=== PATIENT | female | born 1970 | race Caucasian/White ===

== ENCOUNTER 2021-02-02 07:54 | Outpatient (CLI) | payer OTHER, SELFPAY ==
--- NOTE | ~2021-02-02 | MM_ITS ---
EXAMINATION: MM screening xavier BI w juan carlos HISTORY: Screening mammogram TECHNIQUE: Craniocaudal and mediolateral oblique 3-D tomosynthesis images were obtained and synthetic 2-D images were generated. CAD analysis was submitted and interpreted. COMPARISON: 03/11/2019, 04/10/2016, 03/29/2015 bilateral digital screening mammogram examinations BREAST PARENCHYMAL COMPOSITION: The breasts are heterogeneously dense, which may obscure small masses . FINDINGS: There is no evidence of suspicious mass, calcification, or architectural distortion to sugg est malignancy in either breast. There has been no suspicious interval change. IMPRESSION: 1. No mammographic evidence of malignancy. 2. Recommend routine screening mammography in one year. BI-RADS Category 1: Negative Reviewed, dictated and finalized at location A.
== END 2021-02-02 07:55 | disposition home or self-care (01) ==
PROVIDERS: PCP Family Medicine; Visit Provider Family Medicine
DX: Z12.31 Encounter for screening mammogram for malignant neoplasm of breast (principal)
CPT/HCPCS: 77063; 77067

== ENCOUNTER → 2021-02-20 09:21 | Outpatient (CLI) | payer OTHER, SELFPAY ==
--- NOTE | ~2021-02-20 | XR_ITS ---
EXAMINATION: HAND-GENTRY ARTHRITIS 3+VIEWS DATE: 02/20/2021 10:07 INDICATION: Unspecified arthropathy with pain at the base of the bilateral thumbs. TECHNIQUE: Posteroanterior, lateral, and oblique views of the left and of the right hands as well as a ballcatchers view of both hands were obtained. COMPARISON: 04/01/2014 FINDINGS: No fracture at either hand. Interval progression of now severe osteoarthritis at the bilateral first carpal metacarpal joints. Subchondral cystic change at the base of the first metacarpals, left greate r than right. Mild dorsal subluxation of the first metacarpals at the first carpal metacarpal joints. Otherwise normal alignment in both hands. Additional osteoarthritis at the bilateral triscaphe joint s, mild on the right and moderate severity on the left with additional small degenerative subchondral cyst at the distal pole of the left scaphoid. There are small erosions with corticated margins at th e radial sides of the base of the right second-fourth proximal phalanges. The metacarpophalangeal lesly nt spaces remain normal. Soft tissues are unremarkable. IMPRESSION: 1. Interval progression of now severe osteoarthritis at the bilateral first carpal metacarpal joints. 2. Small chronic erosions at the radial bases of the right second-fourth proximal phalanges which cou ld be seen in the setting of chronic rheumatoid arthritis. The metacarpophalangeal joint spaces howev er remain relatively preserved. Reviewed, dictated and finalized at location A. IMPRESSION: 1. Interval progression of now severe osteoarthritis at the bilateral first car pal metacarpal joints. 2. Small chronic erosions at the radial bases of the right second-fourth proxim al phalanges which could be seen in the setting of chronic rheumatoid arthritis . The metacarpophalangeal joint spaces however remain relatively preserved.
== END ==
PROVIDERS: PCP Family Medicine; Visit Provider Family Medicine
DX: M06.9 Rheumatoid arthritis, unspecified (principal); M12.9 Arthropathy, unspecified
CPT/HCPCS: 73130

== ENCOUNTER → 2021-02-28 09:42 | Outpatient (CLI) | payer OTHER, SELFPAY ==
--- NOTE | ~2021-02-28 | XR_ITS ---
EXAMINATION: XR chest 2V DATE: 02/28/2021 10:20 INDICATION: Osteoarthritis, TB screening TECHNIQUE: PA and lateral views of the chest are obtained. COMPARISON: 03/07/2012 FINDINGS: The lungs are free of acute opacities. There is no pleural effusion or pneumothorax. The ca rdiomediastinal silhouette is normal. The visualized bones and soft tissues are unremarkable. IMPRESSION: 1. No acute cardiopulmonary abnormality. Reviewed, dictated and finalized at location A.
== END ==
PROVIDERS: PCP Family Medicine; Visit Provider Family Medicine
DX: M19.90 Unspecified osteoarthritis, unspecified site (principal)
CPT/HCPCS: 71046

== ENCOUNTER 2022-02-20 15:07 | Outpatient (CLI) | payer BC, SELFPAY ==
[2022-02-20 15:27] LABS: Hematocrit 40.2 % (37.0-47.0); Mean Corpuscular HGB Conc 32.3 g/dl (32-36); Mean Corpuscular Volume 89.7 fl (80-100); Mean Platelet Volume 10.7 fl (7.4-10.4); Platelet Count Result 179 k/mm3 (150-375); Red Blood Count 4.48 M/mm3 (4.2-5.4); Red Cell Distribution Width 12.7 % (11.5-14.5); White Blood Count 4.1 K/mm3 (4.5-10.0)
[2022-02-20 15:28] LABS: Appearance Urine Slightly Cloudy (Clear); Bilirubin Urine Negative (Negative); Blood Urine Negative (Negative); Color Urine Yellow (Yellow); Glucose Urine UA Negative (Negative); Ketones Urine Negative (Negative); Leukocyte Esterase Ur Negative LEU/UL (Negative); Nitrate Urine Negative (Negative); Protein Urine Negative (Negative); Specific Grav Ur >= 1.030 (1.001-1.035); Urobilinogen Urine 0.2 mg/dL (<2.0)
[2022-02-20 15:36] LABS: Mucus Urine Rare /lpf; RBC Urine 0-2 /hpf (0-2); Squamous Epithelial Cell Urine Occasional /hpf (Few); WBC Urine 0-3 /hpf
[2022-02-20 15:37] LABS: Add Urine Microscopic? YES
[2022-02-20 15:41] LABS: Alanine Aminotransferase 23 U/L (6-35); Albumin Level 4.1 g/dL (3.5-5.1); Alkaline Phosphatase 53 U/L (38-126); Anion Gap 3 mmol/L (8-16); Aspartate Amino Transferase 30 U/L (14-36); Bilirubin,Total 0.3 mg/dL (0.2-1.3); Blood Urea Nitrogen 25 mg/dL (7-17); CRP < 0.5 mg/dL (<1.0); Calcium 8.7 mg/dL (8.4-10.2); Carbon Dioxide 30 mmol/L (22-30); Chloride 102 mmol/L (98-107); Estimated Glomerular Filt Rate > 60; Glucose 85 mg/dL (65-110); Potassium 3.8 mmol/L (3.4-5.0); Sodium 135 mmol/L (137-145)
[2022-02-20 18:43] LABS: Erythrocyte Sedimentation Rate 4 mm/hr (0-20)
== END 2022-02-20 15:08 | disposition home or self-care (01) ==
LOC: ANHLAB 15:08
PROVIDERS: PCP Family Medicine; Visit Provider Internal Medicine
DX: M05.79 Rheumatoid arthritis with rheumatoid factor of multiple sites without organ or systems involvement (principal); M19.90 Unspecified osteoarthritis, unspecified site
CPT/HCPCS: 36415; 80053; 81001; 85027; 85652; 86140

== ENCOUNTER 2022-04-06 07:04 | Outpatient (CLI) | payer BC, SELFPAY ==
--- NOTE | ~2022-04-06 | MM_ITS ---
EXAMINATION: MM screening xavier BI w juan carlos HISTORY: Screening mammogram TECHNIQUE: Craniocaudal and mediolateral oblique 3-D tomosynthesis images were obtained and synthetic 2-D images were generated. CAD analysis was submitted and interpreted. COMPARISON: 02/02/2021, 03/11/2019, 04/10/2016 bilateral screening mammogram examinations BREAST PARENCHYMAL COMPOSITION: The breasts are heterogeneously dense, which may obscure small masses . FINDINGS: There is no evidence of suspicious mass, calcification, or architectural distortion to sugg est malignancy in either breast. There has been no suspicious interval change. IMPRESSION: 1. No mammographic evidence of malignancy. 2. Recommend routine screening mammography in one year. BI-RADS Category 1: Negative Reviewed, dictated and finalized at location B.
== END 2022-04-06 07:05 | disposition home or self-care (01) ==
LOC: ANHIMG 07:06
PROVIDERS: PCP Family Medicine; Visit Provider Family Medicine
DX: Z12.31 Encounter for screening mammogram for malignant neoplasm of breast (principal)
CPT/HCPCS: 77063; 77067

== ENCOUNTER → 2022-05-07 14:56 | Outpatient (CLI) | payer BC, SELFPAY ==
--- NOTE | ~2022-05-07 | US_ITS ---
. EXAMINATION: US pelvic complete w TV DATE: 05/07/2022 15:17 INDICATION: Hypertrophy of uterus. TECHNIQUE: Multiple transabdominal and transvaginal sonographic images of the pelvis were obtained. COMPARISON: None. FINDINGS: TRANSABDOMINAL ULTRASOUND: The uterus measures 6.5 x 3.4 x 4.0 cm. There is no free fluid in the pelvis. TRANSVAGINAL ULTRASOUND: The endometrial complex measures 3 mm in thickness. The right ovary measures 3.0 x 1.6 x 1.6 cm. The left ovary measures 1.4 x 2.3 x 1.2 cm. IMPRESSION: 1. Normal pelvis. Reviewed, dictated and finalized at location A. IMPRESSION: 1. Normal pelvis.
== END ==
PROVIDERS: PCP Family Medicine; Visit Provider Family Medicine
DX: N85.2 Hypertrophy of uterus (principal)
CPT/HCPCS: 76830; 76856

== ENCOUNTER 2023-06-06 07:14 | Outpatient (CLI) | payer BC, SELFPAY ==
--- NOTE | ~2023-06-06 | MM_ITS ---
EXAMINATION: MM screening xavier BI w juan carlos HISTORY: Screening mammogram TECHNIQUE: Craniocaudal and mediolateral oblique 3-D tomosynthesis images were obtained and synthetic 2-D images were generated. CAD analysis was submitted and interpreted. COMPARISON: 04/06/2022, 02/02/2021 bilateral screening mammogram examinations BREAST PARENCHYMAL COMPOSITION: The breasts are heterogeneously dense, which may obscure small masses . FINDINGS: There is no evidence of suspicious mass, calcification, or architectural distortion to sugg est malignancy in either breast. There has been no suspicious interval change. IMPRESSION: 1. No mammographic evidence of malignancy. 2. Recommend routine screening mammography in one year. BI-RADS Category 1: Negative Reviewed, dictated and finalized at location A.
== END 2023-06-06 07:15 | disposition home or self-care (01) ==
PROVIDERS: PCP Family Medicine; Visit Provider Family Medicine
DX: Z12.31 Encounter for screening mammogram for malignant neoplasm of breast (principal)
CPT/HCPCS: 77063; 77067

== ENCOUNTER 2024-07-10 10:59 | Outpatient (CLI) | payer BC, SELFPAY ==
--- NOTE | ~2024-07-10 | XR_ITS ---
XR hand BI arthritis min 3V Ordering provider: Aryan Moraes MD History: . GENTRY PROX THUMB PAIN /RO RA . Comparison: None. FINDINGS: RIGHT HAND: --BONES: No acute fracture or dislocation. No osteopenia. --JOINT SPACES: Osteoarthritic changes of the first carpometacarpal joint. Lateral subluxation in thi s joint is noted. --SOFT TISSUES: Unremarkable. No soft tissue swelling or nodules. LEFT HAND: --BONES: No acute fracture or dislocation. --JOINT SPACES: Osteoarthritic changes with lateral subluxation seen in the first carpometacarpal lesly nt. --SOFT TISSUES: Unremarkable. No soft tissue swelling or nodules. IMPRESSION: 1. No acute osseous abnormality bilateral hands. 2. Bilateral osteoarthritic changes of the carpometacarpal joint with lateral subluxation bilaterall y. Reviewed, dictated and finalized at location A. IMPRESSION: 1. No acute osseous abnormality bilateral hands. 2. Bilateral osteoarthritic changes of the carpometacarpal joint with lateral subluxation bilaterally.
== END 2024-07-10 11:00 | disposition home or self-care (01) ==
PROVIDERS: PCP Family Medicine; Visit Provider Internal Medicine
DX: M06.9 Rheumatoid arthritis, unspecified (principal); M19.041 Primary osteoarthritis, right hand; M19.042 Primary osteoarthritis, left hand
CPT/HCPCS: 73130

== ENCOUNTER 2024-08-31 09:39 | Outpatient (CLI) | payer BC, SELFPAY ==
--- NOTE | ~2024-08-31 | MM_ITS ---
EXAMINATION: MM screening xavier BI w juan carlos HISTORY: Significant family history of breast cancer diagnosed in the patient's mother in her 50s. TECHNIQUE: Craniocaudal and mediolateral oblique 3-D tomosynthesis images were obtained and synthetic 2-D images were generated. CAD analysis was submitted and interpreted. COMPARISON: 06/06/2023 and dating back to 04/10/2016 BREAST PARENCHYMAL COMPOSITION: The breasts are extremely dense, which lowers the sensitivity of mamm ography. FINDINGS: Bulky calcifications detected bilaterally, stable and benign in appearance. Stable parenchymal pattern without suspicious microcalcifications, architectural distortion, discrete masses or significant asymmetry. IMPRESSION: 1. No mammographic evidence of malignancy. 2. Recommend routine screening mammography in one year. BI-RADS Category 2: Benign findings. Reviewed, dictated and finalized at location A. OR AGENT
== END 2024-08-31 09:40 | disposition home or self-care (01) ==
LOC: ANHIMG 09:41
PROVIDERS: PCP Family Medicine; Visit Provider Family Medicine
DX: Z12.31 Encounter for screening mammogram for malignant neoplasm of breast (principal)
CPT/HCPCS: 77063; 77067

== ENCOUNTER 2025-09-01 10:38 | Outpatient (CLI) | payer BC, SELFPAY ==
--- NOTE | ~2025-09-01 | MM_ITS ---
EXAMINATION: MM screening xavier BI w juan carlos HISTORY: Screening TECHNIQUE: Craniocaudal and mediolateral oblique 3-D tomosynthesis images were obtained and synthetic 2-D images were generated. CAD analysis was submitted and interpreted. COMPARISON: Comparison to multiple prior studies sequentially, with oldest reviewed study dated 04/10/2016. BREAST PARENCHYMAL COMPOSITION: Dense: The breasts are extremely dense, which lowers the sensitivity of mammography. FINDINGS: There is no evidence of suspicious mass, calcification, or architectural distortion to suggest malignancy in either breast. There has been no suspicious interval change. IMPRESSION: 1. No mammographic evidence of malignancy. 2. Recommend routine screening mammography in one year. BI-RADS Category 1: Negative Reviewed, dictated and finalized at location O. [employer] WORKER
--- NOTE | ~2025-09-01 | DEXA_ITS ---
Bone Density Report Name: SULEIMAN BAILEY Age: 55 Sex: Female Ethnicity: White Date of : 1970 Indication: postmenopausal; screening for osteoporosis; Referring Provider: KEAGAN LUJAN Study: Bone densitometry was performed. Exam Date: September 01, 2025 Accession number: [id number] Bone Density: Region BMD T-score Z-score Classification AP Spine(L1-L4) 1.007 -0.4 0.9 Normal Femoral Neck (Left) 0.873 0.2 1.4 Normal Total Hip (Left) 1.036 0.8 1.6 Normal Femoral Neck (Right) 0.930 0.7 1.9 Normal Total Hip (Right) 1.036 0.8 1.6 Normal Total Hip Mean 1.036 0.8 1.6 Normal World Health Organization criteria for BMD impression classify patients as: Normal (T-score at or above -1.0), Osteopenia (T-score between -1.0 and -2.5), or Osteoporosis (T-score at or below -2.5). 10-year Fracture Risk: FRAX not reported because: All T-scores for Spine Total, Hip Total, Femoral Neck at or above -1.0 Clinical Information Provided by Patient: Has used the following medications: Vitamin D, Calcium, on hormones but not for osteoporosis treatment Patient maximum height was 65 Menopause Age: 51 Drinks caffeinated beverages Onset of menses at age 12 Number of children 0 Impression: The patient has normal bone mass. Discussion: BONE DENSITY IS ABOVE THE MINIMUM DESIRABLE LEVEL AT ALL SKELETAL SITES TESTED. This patient?s bone mineral density is above the minimum desirable level (T-score -1.0 or better) at all sites measured. The patient should follow a healthful lifestyle (good nutrition with adequate calcium and vitamin D, and appropriate weight-bearing exercise). Follow-Up: Consider repeating this study in 5 years or sooner if there is some new clinical indication. Reported by: ADOLFO on 09/01/2025 11:30:00 AM. Reviewed, dictated and finalized at location A.
--- OUTSIDE RECORDS SUMMARY | 2025-09-01 10:41 | XMS_ITS | Data Portability ---
Author Organization [place] - [facility], Main Office Address [address] [place] [address] Assessment Encounter Date Assessment Date Assessment LastModified by Organization Details LastModified Time 12/27/2022 12/27/2022 Patient presents back pain left. Pain is localized to the sacroiliac region left hip she had a similar episode 12 years ago but not as bad she does have a mild scoliosis pain is worse with activity and somewhat relieved by rest however she is to the point where she can no longer run he has an even has a hard time walking at this point neurologically she is intact strength is good reflexes symmetric she does have a curvature of the lumbar spine we will try an injection is done with 20 mg Kenalog 4 cc 1% lidocaine the sacroiliac bursa for prescription drug management will try prednisone taper. Even though she has been in therapy before we will try another course of therapy follow-up in a month and see how she is progressing discussed. [email or web address] Not available 12/27/2022 12:06:31 02/05/2023 02/05/2023 The patient returns sacroiliac pain right. She got some relief from the injection the prednisone pills but remains asymptomatic. The pain is worse with activity somewhat relieved by rest he is overall seemingly well I think she can be released at this point recommend she continue with exercise anti-inflammatory medication time. We will give her some Voltaren to try for prescription drug management. If she has any changes or problems she will call discussed. [email or web address] Not available 02/05/2023 16:32:45 Plan of Treatment Reminders Order Date Submit Date Provider Last Modified By Organization Details Last Modified Time Details Appointments None recorded. Lab None recorded. Referral physical therapist referral 2022 023 [email or web address] [facility], [address], [place], [address], 3 08:45:00 Procedures injection/a spiration joint/bursa (PROC) - in office procedure, administere d by provider 2022 023 julianne Toribio In-Office Order, Internal Use Only DO Not Attach Compendium DO Not Attach Compendium, Do Not Delete/merge, [id number] 12:07:06 Surgeries None recorded. Imaging XR, lumbar spine 2022 023 [email or web address] [facility] [place], [address], [place], [address], 3 12:14:19 Medication Orders diclofenac sodium 75 mg tablet,niko yed release 2022 023 julianne Toribio [facility] #[id number], [address], [place], [id number], 3 16:19:13 Kenalog 10 mg/mL suspension for injection 2022 023 [place] [address] [facility] #90292, [address] [place] [address], [id number], 3 12:08:23 ropivacaine (PF) 5 mg/mL (0.5 %) injection solution 2022 023 [id number], [address], [place], [id number], 3 12:08:23 prednisone 10 mg tablets in a dose pack 2022 023 julianne [facility] #58842, [address] [place] [address], [id number], 3 12:08:23 Patient TargetsNo targets recorded. Patient InstructionsNo instructions recorded. Reason for Referral Physical Therapist Referral for Low back pain Referring Physician: Douglas Malik, Orthopedic Surgery, Encounter Date: 12/27/2022 Results Created Date Observation Date Name Description Value Unit Range Abnormal Flag Note LastModifiedBy Organization Detail LastModifiedTime 12/28/19 23 XR, lumba r spine No observ ation record ed. rick [facility] [place] [address], [place], [address], 12/27/2022 12:07:07 Result Notes None recorded. Problems Name Problem SNOMED Code Status Onset Date Resolution Date Notes Provider Name and Address Organization Details Recorded Time Peripheral enthesopat hy 117030475 Active Not Available [facility] 3 18:04:05 Knee pain Active Not Available [facility] 3 18:04:05 Low back pain 980907259 Active 2022 CHRIST Quinonez null, [employer] 3 11:34:09 Pain in left sacroiliac joint 5633262683497 9102 Active 2022 Douglas Malik MD [address] [employer], [place], [address] , [employer] 3 12:07:14 Pain in right sacroiliac joint 0803862202301 9107 Active 2022 Douglas Malik MD [address], [employer], [place], [address] , [employer] 3 16:32:54 Problem Notes None recorded. Procedures Surgical History Date Name Laterality Status Provider Name and Address Organization Details Recorded Time 3 Ortho - Cortisone Injection completed Douglas Malik MD [address], [address], [place], [address], [employer] 12/27/2022 12:04:58 Imaging Results None recorded. Procedure Notes None recorded. Medical Equipment None Reported. Allergies No known drug allergies Medications Name Sig Start Date Stop Date Status Note LastModified by Organization Details LastModified Time prednisone 10 mg tablet active Not Available Not Available Not Available leflunomide 10 mg tablet 12/27 completed Not Available Not Available Not Available triamcinolo ne acetonide 0.5 % topical ointment 12/27 completed Not Available Not Available Not Available tretinoin 0.05 % topical cream APPLY A SMALL AMOUNT TO AFFECTED AREA(S) EVERY EVENING 12/27 completed Not Available Not Available Not Available leflunomide 20 mg tablet 12/27 completed Not Available Not Available Not Available prednisone 10 mg tablets in a dose pack Take 1 tab by mouth, 3 times a day for 3 daysTake 1 tab by mouth 2 times a day for 2 daysTake 1 tab by mouth once a day for 1 day 2022 active Not Available Not Available Not Avai lable Kenalog 10 mg/mL suspension for injection Take 20 mg by injection route. 2022 active [facility]: 0003- 0494- 20 Not Available Not Available Not Available doxycycline monohydrate 100 mg capsule TAKE 1 CAPSULE BY MOUTH TWICE DAILY FOR 10 DAYS 12/27 completed Not Available Not Available Not Available diclofenac sodium 75 mg tablet,niko yed release Take 1 tablet twice a day by oral route. 2022 active Not Available Not Available Not Avai lable folic acid 1 mg tablet 12/27 completed Not Available Not Available Not Available clobetasol 0.05 % topical ointment APPLY OINTMENT TOPICALLY TO AFFECTED AREA TWICE DAILY UNTIL FOLLOW UP IN 3 WEEKS 12/27 completed Not Available Not Available Not Available hydroxychlo roquine 200 mg tablet active Not Available Not Available No t Available ketoconazol e 2 % topical cream 12/27 completed Not Available Not Available Not Available diclofenac 1 % topical gel 12/27 completed Not Available Not Available Not Available ropivacaine (PF) 5 mg/mL (0.5 %) injection solution Take 20 mg by injection route. 2022 active Not Available Not Available Not Avai lable Vitals Date Recorded Body height Body mass index (BMI) Body weight Provider Name and Address Organization Details Last Updated DateTime 12/27/2022 165.1 cm 20.8 kg/m2 65735.05 g CHRIST Quinonez [place] [facility] 12/27/2022 11:31:56 Date Recorded Body height Body mass index (BMI) Body weight Provider Name and Address Organization Details Last Updated DateTime 02/05/2023 165.1 cm 20.8 kg/m2 73180.05 g Krystle Campbell CNA [place] [facility] 02/05/2023 15:20:39 Social History None recorded. Functional Status Question Answer Note LastModified by Organizat ion Details LastModified Time What is your level of alcohol consumption? Occasional [email or web address] Information not available 12/27/2022 Mental Status None recorded. Family History Relationship Description Onset Age of this Age Resolved Age Notes LastModified by Organization Details LastModified Time Mother Family history of malignant neoplasm [email or web address] Not available 2022 11:33:03 Father Hypertensive disorder [email or web address] Not available 2022 11:33:10 Medical History Condition Response ARTHRITIS Y Gynecological HistoryNo gynecological history recorded. Obstetrics History GPAL:G 0 P 0 0 0 0 Past Encounters Encounter ID Performer Location Encounter Start Date Encounter Closed Date Diagnosis/Indication Diagnosis SNOMED-CT Code Diagnosis ICD10 Code Diagnosis IMO Codes Diagnosis Note [id number] Douglas Malik MD [facility] [place] [address] [place] [address] 12/27/2022 11:20:10 12/27/2022 12:14:19 Low back pain 658889252 M54.50 Pain in le ft sacroiliac joint 3702022550 8053566 M53.3 [id number] Douglas Malik MD [facility] [place] [address] [place] [address] 02/05/2023 15:15:24 02/05/2023 16:41:20 Low back pain 290637303 M54.50 Pain in ri ght sacroiliac joint 7732595624 8054465 M53.3 Health Concerns Section Related Observation LastModified by Organization Detai ls LastModified Time None Recorded Concern Status LastModified by Organization Details LastModified Time None Recorded Advance Directives Directive None Recorded Payers Insurance Date Sequence Insurance Name Policy Number Policy Nevarez Covered Member ID Nevarez Member ID Guarantor Name 02/11/2023 1 [employer] ([place]) [id number] Mayda Preston [id number] Mayda Preston Notes Date Note Type Note Provider Name and Address Organization Details Recorded Time 12/27/2022 text/html Back PainReporte d by PatientHPIFor location, patient reportspain radiating to the buttocks. For quality, patient reportsdull. For severity, patient reportsworsening. For duration, patient reportschronic. For context, patient reportsunusual activityandprior back problems. For associated symptoms, patient reportsno fever,no weak limbs,no numbness of the legs/feet,no tingling,no incontinence, andno shortness of breath. Douglas Malik MD [address], [place], [address], [employer] 12/27/2022 12:08:19 02/05/2023 text/html Patient returns sacroiliac pain right. The pain for the most part is resolved she has a little bit of pain left but overall seemingly doing well. Douglas Malik MD [address], [place], [address], [employer] 02/05/2023 16:33:16 OBGyn Episode No OBEpisode recorded.
--- OUTSIDE RECORDS SUMMARY | 2025-09-01 10:41 | XMS_ITS | Clinical Summary ---
Author Organization [facility] Address [address] [place] [address] Care Team Providers Care Senior Health Consultant Name Role Phone Rima Astudillo MD Primary Care Provider + Source Comments [facility],non-owned Affiliates and Associated Physician Practices is amultiple site organization consisting of ambulatory clinics and hospital sitesin [place], [place], [place] and [place]. This disclosure is being madepursuant to the Care Everywhere program and may not contain all information available regarding this patient. Last updated 18.[facility] [employer]wolf Allergies No known active allergies Immunizations Immunization Administration Dates Next Due iNFLUENZA VACCINE, RECOM-FREY, QUADR. (FLUBLOCK QUADRIVALENT; 18Y+) (RIV4) 06/11/2018 Social History Tobacco Use Types Packs/Day Years Used Date Smoking Tobacco: Never Assessed Comments Unknown Sex and Gender Information Value Date Recorded Sex Assigned at Not on file Legal Sex Female 11:05 AM CDT Gender Identity Not on file Sexual Orientation Not on file Plan of Treatment Health Maintenance Due Date Last Done Comments COLOGUARD (AGES 45-75) - COL ON CA SCREENING 1968 COLON MONITORING 1968 COLONOSCOPY - COLON CA SCREENING 1968 CT COLONOGRAPHY - COLON CA SCREENING 1968 Colorectal Cancer Screening 1968 FIT - COLON CA SCREENING 1968 FLEX SIG - COLON CA SCREENING 1968 LIPID TESTING 1968 MAMMOGRAM 1968 HIV SCREENING 1983 HEPATITIS C SCREENING 05/29/1986 DTAP/TDAP/TD VACCINES (1 - Tdap) 1987 HEPATITIS B VACCINE (1 of 3 - 19+ 3-dose series) 1987 PNEUMOCOCCAL VACCINE 50+ (1 of 1 - PCV) 2018 ZOSTER VACCINE (1 of 2) 2018 DEPRESSION SCREENING 09/09/2024 COVID-19 VACCINE (1 - 2024-2 6 season) 2025 INFLUENZA VACCINE (#1) 2025 06/11/2018 HIB VACCINE Aged Out No longer eligi ble based on patient's age to complete this topic HPV VACCINE Aged Out No longer eligi ble based on patient's age to complete this topic MENINGOCOCCAL (Group B) VACC INE SHARED DECISION-MAKING Aged Out No longer eligibl e based on patient's age to complete this topic MENINGOCOCCAL GROUPS A/C/Y/W VACCINE Aged Out No longer eligible b ased on patient's age to complete this topic Insurance [employer] Care Teams Senior Health Consultant Relationship Specialty Start Date End Date Rima Astudillo MD [address] [place] [address] PCP - General Family Medicine 06/11/18
== END 2025-09-01 10:39 | disposition home or self-care (01) ==
LOC: ANHFOHIMG 10:40
PROVIDERS: PCP Family Medicine; Visit Provider Obstetrics & Gynecology
DX: Z12.31 Encounter for screening mammogram for malignant neoplasm of breast (principal); Z78.0 Asymptomatic menopausal state; Z82.62 Family history of osteoporosis
CPT/HCPCS: 77063; 77067; 77080